=== PATIENT | female | born 1995 | race African-American/Black ===

== ENCOUNTER 2018-10-15 12:11 | Outpatient (CLI) | payer MEDICAID ==
--- NOTE | 2018-10-15 18:41 | Ultrasound Report ---
Reason: ANATOMIC SURVEY Procedure Date: 10/15/2018 Accession Number: [id number] / [id number] Procedure: US - OB Detailed Eval CPT Code: FULL RESULT: EXAM: COMPLETE OBSTETRICAL ULTRASOUND EXAM DATE: 10/15/2018 12:14 PM. CLINICAL HISTORY: anatomic survey. LMP 06/13/2018 COMPARISON: None. TECHNIQUE: Real-time sonographic evaluation of the fetus performed by the feed weigher. Multiple door to door sales representative static images were saved for review. DATING: EGA 17 weeks 5 days with CHAPO 03/20/2019 based on LMP.. EGA 20 weeks 0 days with CHAPO 03/04/2019 based on the current ultrasound. GENERAL EVALUATION Esparza . Cardiac activity: 154 bpm. movement: Present. Presentation: Breech Placenta: Anterior position. No evidence for previa. Umbilical cord: 3 vessel cord. Central placental cord origin. Amniotic fluid: Subjectively normal. MVP 5.8 cm. BIOMETRY Bi-Parietal Diameter (BPD): 4.8 cm, 20 weeks 3 days Head Circumference (HC): 17.6 cm, 20 weeks 0 days Abdominal Circumference (AC): 14.7 cm, 20 weeks 0 days Femur Length (FL): 3.2 cm, 19 weeks 6 days Estimated Weight: 325 g, 97th percentile for LMP ANATOMY The intracranial structures, profile, face/nose/lips, spine, 4 chamber heart and outflow tracts, stomach, abdominal wall and cord insertion, diaphragm, kidneys, bladder, and extremities were visualized and demonstrate no abnormality. MATERNAL STRUCTURES Uterus: Unremarkable. Cervix: Long and closed. Transabdominal length 4.8 cm. Right ovary/adnexa: Unremarkable. Left ovary/adnexa: Unremarkable. Free fluid: None. IMPRESSION: 1. Esparza intrauterine with gestational age 20 weeks 0 days based on the current ultrasound, discordant with the expected age by last menstrual period. 2. CHAPO 03/04/2019 based on today's ultrasound. 3. Normal anatomic survey. No anatomic abnormalities are detected at this time. RADIA
== END 2018-10-15 12:12 | disposition home or self-care (01) ==
LOC: DI 12:11
PROVIDERS: ATTEND Nurse Practitioner Obstetrics & Gynecology
DX: Z36.89 Encounter for other specified antenatal screening (principal)
CPT/HCPCS: 76811

== ENCOUNTER 2018-10-16 09:47 | Outpatient (CLI) | payer MEDICAID ==
[2018-10-16 15:32] LABS: MUDS CUTOFF CONCENTRATIONS CUTOFF CONC BELOW:
[2018-10-16 16:03] LABS: AMPHETAMINE SCREEN,URINE NEGATIVE (NEGATIVE); BENZODIAZEPINES SCREEN, URINE NEGATIVE (NEGATIVE); COCAINE SCREEN URINE NEGATIVE (NEGATIVE); METHADONE SCREEN, URINE NEGATIVE (NEGATIVE); METHAMPHETAMINES SCREEN, URINE NEGATIVE (NEGATIVE); OPIATE SCREEN, URINE NEGATIVE (NEGATIVE); OXYCODONE SCREEN, URINE NEGATIVE (NEGATIVE); PROPOXYPHENE SCREEN, URINE NEGATIVE (NEGATIVE); TRICYCLIC ANTIDEPRESSANT,URINE NEGATIVE (NEGATIVE)
== END 2018-10-16 09:48 | disposition home or self-care (01) ==
LOC: LAB.R 09:47
PROVIDERS: ATTEND Registered Nurse
DX: Z36.89 Encounter for other specified antenatal screening (principal)
CPT/HCPCS: 80306

== ENCOUNTER 2018-10-16 09:59 | Outpatient (CLI) | payer MEDICAID ==
[2018-10-16 10:30] LABS: BASOPHILS % (AUTO) 0.5 %; EOSINOPHILS # (AUTO) 0.1 10^3/uL (0.0-0.7); EOSINOPHILS % (AUTO) 0.6 %; HGB - HEMOGLOBIN 11.6 g/dL (12.0-16.0); LYMPHOCYTES # (AUTO) 1.7 10^3/uL (1.5-3.5); LYMPHOCYTES % (AUTO) 16.5 %; MEAN CORPUSCULAR HEMOGLOBIN 32.3 pg (27.0-31.0); MEAN CORPUSCULAR HGB CONC 34.8 g/dL (32.0-36.0); MEAN PLATELET VOLUME 8.2 fL (7.9-10.8); MONOCYTES # (AUTO) 0.9 10^3/uL (0.0-1.0); MONOCYTES % (AUTO) 9.1 %; NEUTROPHILS # (AUTO) 7.5 10^3/uL (1.5-6.6); NEUTROPHILS % (AUTO) 73.3 %; PLT - PLATELET COUNT 198 10^3/uL (130-450); RED BLOOD COUNT 3.59 10^6/uL (4.20-5.40); RED CELL DISTRIBUTION WIDTH 14.3 % (12.0-15.0); WHITE BLOOD COUNT 10.2 x10^3/uL (4.8-10.8)
[2018-10-16 10:43] LABS: BILIRUBIN,URINE NEGATIVE (NEGATIVE); GLUCOSE, URINE (UA) NEGATIVE (NEGATIVE); KETONES,URINE (UA) NEGATIVE (NEGATIVE); LEUKOCYTE ESTERASE, URINE NEGATIVE (NEGATIVE); NITRITE,URINE NEGATIVE (NEGATIVE); OCCULT BLOOD,URINE NEGATIVE (NEGATIVE); PROTEIN,URINE NEGATIVE (NEGATIVE); UROBILINOGEN,URINE 0.2 (NORMAL) E.U./dL (NORMAL)
[2018-10-16 10:45] LABS: CLARITY,URINE CLEAR (CLEAR)
[2018-10-16 10:57] LABS: BACTERIA,URINE Rare /HPF (None Seen); RBC,URINE 0-5 /HPF (0-5); SQUAMOUS EPITHELIAL CELL,UR RARE Squamous (<= Few)
[2018-10-17 12:36] LABS: HEPATITIS C ANTIBODY NON-REACTIVE (NON-REACTIVE)
[2018-10-17 12:46] LABS: HEPATITIS B SURFACE ANTIGEN NON-REACTIVE (NON-REACTIVE)
[2018-10-17 13:56] LABS: HIV AG/AB 4TH GEN NON-REACTIVE (NON-REACTIVE)
== END 2018-10-16 10:00 | disposition home or self-care (01) ==
LOC: LAB 09:59
PROVIDERS: ATTEND Registered Nurse
DX: Z36.89 Encounter for other specified antenatal screening (principal)
CPT/HCPCS: 36415; 81001; 81599; 85025; 86592; 86762; 86803; 86850; 86900; 86901; 87086; 87340; 87389

== ENCOUNTER 2018-11-28 09:34 | Outpatient (CLI) | payer MEDICAID ==
[2018-11-28 11:00] LABS: HGB - HEMOGLOBIN 11.9 g/dL (12.0-16.0); MEAN CORPUSCULAR HEMOGLOBIN 32.9 pg (27.0-31.0); MEAN CORPUSCULAR HGB CONC 34.1 g/dL (32.0-36.0); MEAN CORPUSCULAR VOLUME 96.6 fL (81.0-99.0); MEAN PLATELET VOLUME 7.9 fL (7.9-10.8); RED BLOOD COUNT 3.62 10^6/uL (4.20-5.40); RED CELL DISTRIBUTION WIDTH 13.6 % (12.0-15.0); WHITE BLOOD COUNT 11.2 x10^3/uL (4.8-10.8)
== END 2018-11-28 09:35 | disposition home or self-care (01) ==
LOC: LAB 09:34
PROVIDERS: ATTEND Nurse Practitioner Obstetrics & Gynecology
DX: Z36.89 Encounter for other specified antenatal screening (principal)
CPT/HCPCS: 36415; 82950; 85027; 86850

== ENCOUNTER 2018-12-07 14:50 | Emergency (ER) | payer MEDICAID ==
[2018-12-07 14:56] VITALS: BP 149/79
[2018-12-07] MEDS ORDERED: AZITHROMYCIN 250 MG TABLET PO STA (15:03)
--- NOTE | 2018-12-07 15:05 | ED Physician Documentation ---
History of Present Illness - Stated complaint Stated Complaint: [id number] PREG - Chief complaint Chief Complaint: General - History obtained from History obtained from: Patient, Family (spouse) - History of Present Illness Timing: Today (23-year-old woman, 27 weeks . Her significant other was recently tested for STDs and came back positive for chlamydia and she presents for treatment. She is asymptomatic without cramping, bleeding, or discharge.) Review of Systems Constitutional: denies: Fever, Chills Cardiac: denies: Chest pain / pressure, Palpitations Respiratory: denies: Dyspnea, Cough GI: denies: Abdominal Pain PD PAST MEDICAL HISTORY - Present Medications Home Medications: Ambulatory Orders Medication Instructions Recorded Confirmed No Known Home Medications 12/07/18 12/07/18 - Allergies Allergies/Adverse Reactions: Allergies Allergy/AdvReac Type Severity Reaction Status Date / Time No Known Drug Allergies Allergy Verified 12/07/18 14:56 PD ED PE NORMAL - Vitals Vital signs reviewed: Yes - General General: Alert and oriented X 3, No acute distress - Abdomen Abdomen: Normal bowel sounds, Soft, Non tender - Neuro Neuro: Alert and oriented X 3, Normal speech Results - Vitals Vitals: Vital Signs - 24 hr 12/07/18 14:51 Temperature 36.7 C Heart Rate 90 Respiratory 18 Rate Blood Pressure 149/79 H O2 Saturation 100 Oxygen O2 Source Room air PD MEDICAL DECISION MAKING - ED course ED course: With his permission, the significant other's medical records were reviewed, he was seen recently and had a test positive for chlamydia, negative for gonorrhea. As such she is treated with Zithromax, 1 g p.o. Departure - Departure Disposition: 01 Home, Self Care Clinical Impression: Chlamydia contact, treated Condition: Good Record reviewed to determine appropriate education?: Yes Health Concerns: Chlamydia Plan of Treatment: Zithromax 1g PO given in ED Care Goals: To eradicate chlamydia Assessment: Chlamydia contact Instructions: ED Chlamydia Female Comments: [place]. As discussed you received 1 g of Zithromax orally here for the known positive chlamydia contact.
== END 2018-12-07 15:15 | disposition home or self-care (01) ==
LOC: ED 14:50
DX: O98.312 Other infections with a predominantly sexual mode of transmission complicating pregnancy, second trimester (principal); Z20.2 Contact with and (suspected) exposure to infections with a predominantly sexual mode of transmission; Z3A.27 27 weeks gestation of pregnancy
CPT/HCPCS: 99283; A9270